=== PATIENT | male | born 1980 ===

== ENCOUNTER 2017-03-21 17:20 | Emergency (ER) | payer MEDICAID, OTHER ==
[2017-03-21 17:31] VITALS: BP 139/85; PULSE 80; RESP 17; TEMP 98.8; O2SAT 99
[2017-03-21] MEDS ORDERED: Fluorescein 1 mg Ophthalmic Strip OS ONE (17:55)
[2017-03-21] MEDS ORDERED: Tetracaine 0.5% Ophth 2 ML BOTTLE OU ONE (17:55)
[2017-03-21] MEDS ORDERED: Tetracaine 0.5% Ophth (OR ONLY) ONE (18:05)
[2017-03-21] MEDS ORDERED: Fluorescein 1 mg Ophthalmic Strip ONE (18:05)
--- NOTE | 2017-03-21 18:37 | C.PDOC ---
History Of Present Illness Patient reports pain, irritation, redness, foreign body sensation and tearing to left eye for 2 days. 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 He was not wearing protective eye wear. Denies use of contacts or glasses, no visual changes. Time Seen by Provider: 03/21/17 17:51 Chief Complaint (Nursing): Eye Problem History Per: Patient History/Exam Limitations: no limitations Onset/Duration Of Symptoms: Days Current Symptoms Are (Timing): Still Present Injury To Eye?: No Severity: Moderate Quality: "Pain" Wears Contact Lens?: No Associated Symptoms: Pain, FB Sensation, Other (irritation, redness). denies: Decreased Vision Recent travel outside of the [place]: No Past Medical History Reviewed: Historical Data, Nursing Documentation, Vital Signs Vital Signs: Last Vital Signs Temp 98.8 F 03/21/17 17:30 Pulse 80 03/21/17 17:30 Resp 17 03/21/17 17:30 BP 139/85 03/21/17 17:30 Pulse Ox 99 03/21/17 20:11 - Medical History PMH: HTN, Kidney Stones Family History: States: Unknown Family Hx - Social History Hx Tobacco Use: No Hx Alcohol Use: Yes (not in past 2 months, before that only socially) Hx Substance Use: No - Immunization History Hx Tetanus Toxoid Vaccination: No Review Of Systems Eyes: Positive for: Other (pain, irritation, redness, foreign body sensation and tearing to left eye). Negative for: Vision Change Physical Exam - Physical Exam Appears: Non-toxic, No Acute Distress Skin: Warm, Dry, No Rash Head: Atraumatic, Normacephalic Eye(s): bilateral: PERRL, EOMI, left: Other (diffuse conjunctival injection, tearing; no discharge or eyelid inflammation) Neurological/Psych: Oriented x3, Normal Speech ED Course And Treatment O2 Sat by Pulse Oximetry: 99 (room air) Pulse Ox Interpretation: Normal Medical Decision Making Medical Decision Making: Tetracaine and fluoroscein applied with + uptake at 9oclock, consistent with corneal abrasion Will prescribe antibiotic drops and instruct to follow up with ophtho Disposition Counseled Patient/Family Regarding: Need For Followup, Rx Given - Disposition Referrals: Guy Benson MD [Staff Provider] - Disposition: HOME/ ROUTINE Disposition Time: 18:34 Condition: STABLE Additional Instructions: Apply 1 drop to affected eye 4 times per day Follow up with optho in one week if symptoms persist Prescriptions: Polymyxin/Trimethoprim Sulfate [Polytrim Ophth Soln] 1 drop OS QID #1 bottle Instructions: Corneal Abrasion (ED) Forms: Work Excuse - POA Present On Arrival: None - Clinical Impression Clinical Impression: Corneal abrasion - 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 - Scribe Statement The provider has reviewed the documentation as recorded by the Scribe Bird Bartlett All medical record entries made by the Loreeibbarb were at my direction and personally dictated by me. I have reviewed the chart and agree that the record accurately reflects my personal performance of the history, physical exam, medical decision making, and the department course for this patient. I have also personally directed, reviewed, and agree with the discharge instructions and disposition.
== END 2017-03-21 18:52 | disposition home or self-care (01) ==
LOC: C.ER 17:20
DX: S05.02XA Injury of conjunctiva and corneal abrasion without foreign body, left eye, initial encounter (principal); X58.XXXA Exposure to other specified factors, initial encounter; I10 Essential (primary) hypertension